=== PATIENT | male | born 1970 | race Caucasian/White ===

== ENCOUNTER → 2023-07-12 17:01 | Outpatient (REF) | payer BC, SELFPAY | LOC: RAD 17:01 | PROVIDERS: ATTENDING PHYSICIAN Family Medicine | DX: R74.8 Abnormal levels of other serum enzymes (principal) | CPT/HCPCS: 76700 ==

== ENCOUNTER 2024-02-09 18:12 | Emergency (ER) | payer BC, SELFPAY ==
[2024-02-09 18:12] VITALS: BMI 25.2
--- NOTE | 2024-02-09 18:26 | ED.GENMED ---
ED Provider Triage
<Lindsay Haji PA-C - Last Filed: 02/09/24 18:28>
-
Patient seen by provider in Triage?: Seen in Triage
Attestation: A medical screening examination has been initiated by a qualified medical provider. Based on the assessment performed at this time, it has been determined that an emergent medical condition may exist and the patient has been informed
that further medical evaluation and possible additional diagnostic testing may be needed.
HPI: 53yoM here with L chest pain that started this afternoon. Feels sharp. No SOB, nausea, diaphoresis.
GENERAL: Alert , in no apparent distress
EYE: No visual abnormalities.
NECK: Trachea midline
ENT: No visible abnormalities.
LUNGS: No acute respiratory distress
NEUROLOGICAL: Alert and oriented
SKIN: Skin intact. No visible changes.
MUSCULOSKELETAL: Moving extremities normally
PSYCH: Normal and appropriate interaction.
This is a medical evaluation conducted in person to initiate diagnostic evaluation and provide initial therapeutics. Please see further documentation by the treating clinician.
Cardiac labs, EKG, and CXR ordered.
History of Present Illness
<Lindsay Haji PA-C - Last Filed: 02/09/24 18:28>
General
Chief Complaint: Chest Pain
Time Seen by Provider: 02/09/24 22:05
<Deondre Cobb DO - Last Filed: 02/09/24 22:19>
General
Source: patient
Exam Limitations: none
History of Present Illness
History of Present Illness:
See MDM
Past History
<Lindsay Haji PA-C - Last Filed: 02/09/24 18:28>
Past History
ED Past Medical History: None
ED Past Surgical History: None
Social History
Tobacco: Non-smoker
Alcohol: Occasional
Personal:
Living: with family
Phy Exam
<Deondre Cobb, DO - Last Filed: 02/09/24 22:19>
Physical Exam
Physical Exam:
See MDM
Scores
<Deondre Cobb, DO - Last Filed: 02/09/24 22:19>
Heart Score for Chest Pain Patients
STEMI patient?: No
History: Slightly or Non-Suspicious
ECG: Normal
Age: >45 - <65 years
Risk Factors: No Risk Factors
Troponin: </= Normal Limit
Heart Score for Chest Pain Patients: 1
Heart Score Risk: 2.5% MACE over next 6 weeks
Course
<Lindsay Haji PAEros - Last Filed: 02/09/24 18:28>
Orders/Labs/Results
Orders:
Orders
02/09/24 18:13
ECG [Electrocardiogram (*1)] Urgent
Reason for Study: Chest Pain
EKG- Treatment ONCE
02/09/24 18:28
CR Chest - 2 Views Urgent
Comment:
Reason For Exam: CP
02/09/24 18:36
Complete Blood Count/With Diff Urgent
Comprehensive Metabolic Panel Urgent
Troponin I Urgent
Abnormal Lab Results
02/09/24
18:36
BUN 25 H mg/dl
(20)
02/09/24 18:36
02/09/24 18:36
Vital Signs
Initial and Last Documented VS:
Initial Vital Signs
Temp Pulse Resp BP Pulse Ox
98.6 F 67 18 139/89 99
02/09/24 18:27 02/09/24 18:27 02/09/24 18:27 02/09/24 18:27 02/09/24 18:27
Last Documented Vital Signs
Temp Pulse Resp BP Pulse Ox
98.6 F 69 16 131/70 97
02/09/24 18:27 02/09/24 21:15 02/09/24 21:15 02/09/24 21:00 02/09/24 21:30
<Deondre Cobb, DO - Last Filed: 02/09/24 22:19>
Orders/Labs/Results
Orders:
Orders
02/09/24 18:13
ECG [Electrocardiogram (*1)] Urgent
Reason for Study: Chest Pain
EKG- Treatment ONCE
02/09/24 18:28
CR Chest - 2 Views Urgent
Comment:
Reason For Exam: CP
02/09/24 18:36
Complete Blood Count/With Diff Urgent
Comprehensive Metabolic Panel Urgent
Troponin I Urgent
Abnormal Lab Results
02/09/24
18:36
BUN 25 H mg/dl
(01-19)
02/09/24 18:36
02/09/24 18:36
Vital Signs
Initial and Last Documented VS:
Initial Vital Signs
Temp Pulse Resp BP Pulse Ox
98.6 F 67 18 139/89 99
02/09/24 18:27 02/09/24 18:27 02/09/24 18:27 02/09/24 18:27 02/09/24 18:27
Last Documented Vital Signs
Temp Pulse Resp BP Pulse Ox
98.6 F 69 16 131/70 97
02/09/24 18:27 02/09/24 21:15 02/09/24 21:15 02/09/24 21:00 02/09/24 21:30
<Deondre Cobb, DO - Last Filed: 02/09/24 22:19>
MDM/Problems Addressed
Differential Diagnosis Includes:
HPI and MDM Narrative:
Triage note read
53-year-old male with no past medical history is presenting with intermittent left-sided chest pain. Patient states it is sharp when it occurs. He cannot find a pattern. It is not worse with exertion. It sometimes happens when he sits down or
stands up. He denies any shortness of breath or palpitations with this.
Blood work, EKG and chest x-ray performed prior to my evaluation. Blood work within normal limits troponin. EKG nonischemic. Chest x-ray clear.
Patient is extremely well-appearing nontoxic on my exam. Heart regular rate and rhythm. Lungs clear. No reproducible tenderness for me. No leg edema. We discussed likely noncardiac chest pain given nonexertional symptoms in addition to normal
EKG and troponin. We discussed outpatient follow-up with cardiology for the remainder of the workup including stress test and echo
Physical exam
General: Well appearing and non-toxic
HEENT: protecting airway
Neck: appears supple
CV: No evidence of cyanosis. Regular rate and rhythm
Resp: No accessory muscle use. Lungs clear
Abd: Non-distended
Extremities: No deformities. No distal leg edema
Neuro: alert
Psych: Normal affect
Skin: Intact
Problems Addressed including Acute and Chronic Conditions affecting care:
1. Intermittent chest pain
Acuity: acute
Prognosis: stable
Details: Likely not ACS given no exertional component with a normal EKG and normal troponin. Chest x-ray clear. Discussed finishing the outpatient workup with cardiology which includes stress and echo
Differential Diagnosis (but not limited to): Noncardiac chest pain, musculoskeletal strain, esophageal spasm
Testing considered: D-dimer but he is neither tachycardic nor hypoxic
Drug therapy (if applicable): OTC meds, please see d/c instruction regarding Rx drugs
Amount and/or Complexity of Data Reviewed
Clinical info obtained from: Patient
External data reviewed: N/A
Labs I independently reviewed (but not limited to): Troponin normal
Radiology: X-ray independently reviewed: Chest x-ray clear
Pulse Ox: not hypoxic
EKG independently reviewed: Sinus rhythm, normal axis, no STEMI
Veterinary Laboratory Diagnostician: N/A
Critical Care: N/A
Risk of Complication:
Social Determinants of health: Good social support
Discussed with other providers: N/A
Escalation of Care includes Admit/Obs: After being observed in the Emergency Department, pt stable for discharge.
Occasional wrong word or 'sound a like' substitutions may have occurred due to the inherent limitations of voice recognition software. Read the chart carefully and recognize, using context, where substitutions have occurred.
<Deondre Cobb DO - Last Filed: 02/09/24 22:19>
*Critical Care Note
Total Time (30-74mins, 75-104mins- exclusive of procedures): Not Applicable
ED Attending Note
<Lindsay Haji PA-C - Last Filed: 02/09/24 18:28>
-
Portions of this chart may have been created with voice recognition software.� Occasional wrong word or��sound alike� substitutions may have occurred due to the inherent limitations of voice recognition software.
Discharge Plan
Departure
Patient Disposition: Home (Routine Discharge)
Date of Disposition: 02/09/24
Time of Disposition: 22:17
Patient with high blood pressure during this ER visit?: No
Discharge Problem:
Chest pain
Instructions: Chest Pain PCP Follow Up
Prescriptions:
No Action
valacyclovir 1,000 MG tablet
1,000 mg PO Q12H PRN (Reason: sores)
ibuprofen 200 MG tablet
200 mg PO Q4H PRN (Reason: pain)
loratadine 10 MG capsule
10 mg PO DAILY
Referrals:
Jarvis Lozano MD [Family Provider] -
John Anderson MD [Active] -
Activity Restrictions/Additional Instructions:
Please return for any worsening symptoms.
You may return at any time if you have further concerns.
Please follow up with the stencil printer at the first available appointment.
Thank you for choosing [facility].
Interventions
Interventions:
*Risk Screen - Suicide Last Done: 02/09/24 18:27
*General Assessment Last Done: 02/09/24 18:27
*Neglect/Abuse Screening Last Done: 02/09/24 18:27
ED- Fall Risk Assessment Last Done: 02/09/24 20:51
*ED COVID-19 Vaccine History Last Done: 02/09/24 18:27
ED- Cardiac Assessment Last Done: 02/09/24 20:51
Discharge Date and Time
Print Language: TELUGU
[2024-02-09 18:27] VITALS: BP 139/89
[2024-02-09 18:55] LABS: % Basophils 0.7 % (0-2); % Eosinophils 2.5 % (0-6); % Immature Granulocytes 0.2 % (0-0.5); % Lymphocytes 28.5 % (20.5-51.1); % Monocytes 7.9 % (1.7-9.3); % Neutrophils 60.2 % (42.2-75.2); Absolute Eosinophils 0.1 10^3/uL (0-0.7); Absolute Lymphocytes 1.6 10^3/uL (1.2-3.4); Absolute Monocytes 0.5 10^3/uL (0.1-0.6); Absolute Neutrophils 3.4 10^3/uL (1.4-6.5); Hematocrit 41.5 % (39.0-52.0); Hemoglobin 14.3 g/dL (13.0-18.0); Mean Corp Hgb Conc. 34.5 g/dL (33.0-37.0); Mean Corpuscular Hgb 28.7 pg (27.0-31.0); Mean Corpuscular Volume 83.3 fL (80.0-94.0); Mean Platelet Volume 10.3 fL (7.4-10.4); Nucleated Red Blood Cells % 0 % (-); Platelet Count 204 10^3/uL (130-400); Red Blood Cell Count 4.98 10^6/uL (4.70-6.10); White Blood Cell Count 5.7 10^3/uL (4.8-10.8)
[2024-02-09 19:11] LABS: ALT (SGPT) 29 U/L (0-50); AST (SGOT) 37 U/L (17-59); Albumin 4.9 g/dl (3.5-5.0); Alkaline Phosphatase 75 U/L (38-126); Blood Urea Nitrogen 25 mg/dl (9-20); Carbon Dioxide 26 mmol/L (22-30); Glucose 86 mg/dl (70-99); Total Bilirubin 0.6 mg/dl (0.2-1.3); Total Protein 7.3 g/dl (6.3-8.2); eGFR > 60.00
[2024-02-09 19:22] LABS: Troponin I < 0.012 ng/ml
[2024-02-09 19:58] LABS: Chloride 103 mmol/L (98-107); Potassium 4.2 mmol/L (3.5-5.1); Sodium 144 mmol/L (135-145)
[2024-02-09 20:46] VITALS: BP 137/85
[2024-02-09 21:00] VITALS: BP 131/70
[2024-02-09 21:32] VITALS: BP 135/74
[2024-02-09 22:00] VITALS: BP 131/68
== END 2024-02-09 22:44 | disposition home or self-care (01) ==
LOC: EMR 18:12
PROVIDERS: Physician Assistant; EMERGENCY PHYSICIAN Student in an Organized Health Care Education/Training Program; FAMILY PHYSICIAN Family Medicine
DX: R07.89 Other chest pain (principal); Z88.0 Allergy status to penicillin; Z88.2 Allergy status to sulfonamides; Z91.048 Other nonmedicinal substance allergy status
CPT/HCPCS: 99283; 71046; 80053; 84484; 85025; 93005

== ENCOUNTER → 2024-03-14 07:10 | Outpatient (REF) | payer BC, SELFPAY | LOC: RCS 07:10 | PROVIDERS: ATTENDING PHYSICIAN Internal Medicine Cardiovascular Disease; FAMILY PHYSICIAN Family Medicine | DX: R07.9 Chest pain, unspecified (principal) | CPT/HCPCS: 93306 ==

== ENCOUNTER → 2024-03-19 07:23 | Outpatient (REF) | payer BC, SELFPAY | LOC: RCS 07:23 | PROVIDERS: ATTENDING PHYSICIAN Internal Medicine Cardiovascular Disease; FAMILY PHYSICIAN Family Medicine | DX: R07.9 Chest pain, unspecified (principal) | CPT/HCPCS: 93017 ==